=== PATIENT | female | born 1975 | race Caucasian/White ===

== ENCOUNTER 2018-04-29 01:20 | Emergency (ER) | payer OTHER ==
--- NOTE | 2018-04-29 01:50 | PDOC ---
Attending Attestation - Resident Resident Name: Ameya Oliveira - ED Attending Attestation I have performed the following: I have examined & evaluated the patient, The case was reviewed & discussed with the resident, I agree w/resident's findings & plan - HPI HPI: 04/29/18 04:07 Pt comes with a headache - Physicial Exam PE: 04/29/18 06:07 Agree with resident exam. - Medical Decision Making 04/29/18 04:07 Pt has headaches. 04/29/18 06:02 Pt states that her dad unexpectedly after a complication in the hospital after his hip surgery. 9 mos later her mom . Pt lives with her and 2 kids with her parents. Now the family is all screwed up ever since the grandparents . Pt's 18yo son has panic attacks since the deaths and 3yo daughter lost her babysitters. Pt states that she has been living in her parent 's home, and now she had to take over and deal with bills and repairs etc, and states that for the last 3 weeks she has been unable to sleep. Pt states that she is under a great deal of stress. 1 month ago her father in law also. Pt states that she never had a SCHMIDT last 3 weeks and she fears that she may be dying of cancer. 04/29/18 06:43 Patient Name: KEVYN KNIGHT THIS IS A PRELIMINARY REPORT FROM [facility] DATE OF SERVICE: 2018-04-29 06:26:48 IMAGES: 149 EXAM: CT HEAD CT WITHOUT CONTRAST HISTORY: Headache COMPARISON: None. FINDINGS: Brain parenchyma is normal in attenuation with no mass or hematoma. There is no midline shift. Garcia and white matter differentiation is normal. Ventricles are normal. Sulci and extra-axial CSF spaces are normal. Intracranial vascular structures are normal in attenuation. There is no calvarial fracture. Paranasal sinuses are normally aerated. IMPRESSION: Normal head
[2018-04-29] MEDS ORDERED: METOCLOPRAMIDE HCL INJECTION 10 MG/2 ML VIAL IVPUSH ONE (02:03)
[2018-04-29] MEDS ORDERED: ACETAMINOPHEN 1000 MG/100 ML VIAL (NON FORMULARY) IVPB ONE (02:03)
[2018-04-29 02:06] VITALS: BP 112/81; PULSE 86; TEMP 98.1; BMI 28.8
[2018-04-29] MEDS ORDERED: METOCLOPRAMIDE HCL INJECTION 10 MG/2 ML VIAL ONE (02:31)
[2018-04-29] MEDS ORDERED: ACETAMINOPHEN INJECTION 100 ML IVPB ONE (02:31)
--- NOTE | 2018-04-29 03:05 | PDOC ---
History of Present Illness - General Chief Complaint: Headache Stated Complaint: MIGRAINE HEADACHE Time Seen by Provider: 04/29/18 01:49 History Source: Patient Exam Limitations: No Limitations - History of Present Illness Initial Comments: 04/29/18 03:00 Patient is a 42F with history of migraines here today complaining of a headache. Patient describes a headache that started insidiously at 7pm today gradually worsening in intensity, worse on the left aspect of her head. Denies vision loss, jaw claudication. Patient states that she's coming in today because she has had a headache for the past 3 weeks, when she normally gets 1-3 per month. Denies fevers, chills, nausea, vomiting. Denies chest pain, shortness of breath. Endorses associated light and sound sensitivity. Past History - Past Medical History Allergies/Adverse Reactions: Allergies Allergy/AdvReac Type Severity Reaction Status Date / Time No Known Allergies Allergy Verified 04/29/18 02:03 COPD: No - Suicide/Smoking/Psychosocial Hx Smoking History: Never smoked Review of Systems - Review of Systems Comments:: 04/29/18 03:02 GENERAL/CONSTITUTIONAL: No fever or chills. No weakness. HEAD, EYES, EARS, NOSE AND THROAT: No change in vision. No sore throat. CARDIOVASCULAR: No chest pain or shortness of breath RESPIRATORY: No cough, wheezing, or hemoptysis. GASTROINTESTINAL: No nausea, vomiting, diarrhea or constipation. GENITOURINARY: No dysuria, frequency, or change in urination. MUSCULOSKELETAL: No joint or muscle swelling or pain. No neck or back pain. SKIN: No rash NEUROLOGIC: +headache, no vertigo, loss of consciousness, or change in strength/ sensation. ENDOCRINE: No increased thirst. No abnormal weight change HEMATOLOGIC/LYMPHATIC: No anemia, easy bleeding, or history of blood clots. ALLERGIC/IMMUNOLOGIC: No hives or skin allergy. *Physical Exam - Vital Signs Last Vital Signs Temp Pulse Resp BP Pulse Ox 98.1 F 86 18 112/81 98 04/29/18 02:00 04/29/18 02:00 04/29/18 02:00 04/29/18 02:00 04/29/18 02:00 - Physical Exam Comments: 04/29/18 03:03 GENERAL: Awake, alert, and fully oriented, shielding eyes from light HEAD: No signs of trauma, normocephalic, atraumatic EYES: PERRLA, EOMI, sclera anicteric, conjunctiva clear ENT: Auricles normal inspection, hearing grossly normal, nares patent, oropharynx clear without exudates. Moist mucosa NECK: Normal ROM, supple, no lymphadenopathy, JVD, or masses LUNGS: No distress, speaks full sentences, clear to auscultation bilaterally HEART: Regular rate and rhythm, normal S1 and S2, no murmurs, rubs or gallops, peripheral pulses normal and equal bilaterally. ABDOMEN: Soft, nontender, normoactive bowel sounds. No guarding, no rebound. No masses EXTREMITIES: Normal inspection, Normal range of motion, no edema. No clubbing or cyanosis. NEUROLOGICAL: Cranial nerves II through XII grossly intact. Normal speech, normal gait, no focal sensorimotor deficits SKIN: Warm, Dry, normal turgor, no rashes or lesions noted. Moderate Sedation - Procedure Monitoring Vital Signs: Procedure Monitoring Vital Signs Temperature 98.1 F 04/29/18 02:00 Pulse Rate 86 04/29/18 02:00 Respiratory Rate 18 04/29/18 02:00 Blood Pressure 112/81 04/29/18 02:00 O2 Sat by Pulse Oximetry (%) 98 04/29/18 02:00 ED Treatment Course - LABORATORY CBC & Chemistry Diagram: 04/29/18 03:17 04/29/18 03:17 Medical Decision Making - Medical Decision Making 04/29/18 03:03 Patient is 42F here today with headache consistent with headache. Considered head bleed, meningitis, sinus thrombosis, giant cell arteritis, mass, but history, risk factors and exam not consistent with those and other major etiologies of headache. Will treat with tylenol, reglan, benadryl. Will evaluate with basic labs. 04/29/18 04:50 CBC normal. CMP reassuring. ESR negative. Headache improved. Will discharge home with return precautions. *DC/Admit/Observation/Transfer Diagnosis at time of Disposition: Headache - Discharge Dispostion Disposition: HOME Condition at time of disposition: Good Decision to Admit order: No - Referrals Referrals: ON STAFF,NOT [Primary Care Provider] - - Patient Instructions Printed Discharge Instructions: DI for Migraine Additional Instructions: Please follow up with a neurologist. You can follow with the neurologist you were referred to by your PCP or the one below. Please return if you have any new, worsening or concerning symptoms, especially fever, increasing pain and vomiting. - Post Discharge Activity
[2018-04-29 04:03] LABS: BASO % 0.7 % (0-2.0); EOS % 4.8 % (0-4.5); HEMATOCRIT 38.9 % (32.4-45.2); HEMOGLOBIN 13.9 GM/dL (10.7-15.3); LYMPH % 33.6 % (8-40); MCH 33.5 pg (25.7-33.7); MCHC 35.6 g/dl (32.0-36.0); MEAN CELL VOLUME 94.1 fl (80-96); MEAN PLT VOLUME 7.6 fl (7.5-11.1); MONO % 7.8 % (3.8-10.2); NEUT % 53.1 % (42.8-82.8); PLATELET COUNT 185 K/MM3 (134-434); RBC 4.14 M/mm3 (3.60-5.2); RDW 13.2 % (11.6-15.6); WHITE BLOOD COUNT 5.3 K/mm3 (4.0-10.0)
[2018-04-29 04:39] LABS: ALK PHOS 90 U/L (45-117); ANION GAP 7 MMOL/L (8-16); BILIRUBIN,TOTAL 0.8 mg/dL (0.2-1); BLOOD UREA NITROGEN 17 mg/dL (7-18); CALCIUM 8.6 mg/dL (8.5-10.1); CHLORIDE 104 mmol/L (98-107); CO2 30 mmol/L (21-32); CREATININE 0.9 mg/dL (0.55-1.3); GLUCOSE,RANDOM 87 mg/dL (74-106); POTASSIUM 3.6 mmol/L (3.5-5.1); SGOT/AST 16 U/L (15-37); SGPT/ALT 23 U/L (13-61); SODIUM 140 mmol/L (136-145); TOT PROT 7.4 g/dl (6.4-8.2)
== END 2018-04-29 06:50 | disposition home or self-care (01) ==
LOC: JER 01:20
PROC: 3E033GC Introduction of Other Therapeutic Substance into Peripheral Vein, Percutaneous Approach (ICD-10-PCS; principal; 2018-04-29)
PROC: 3E033GC Introduction of Other Therapeutic Substance into Peripheral Vein, Percutaneous Approach (ICD-10-PCS; 2018-04-29)
PROC: 3E033NZ Introduction of Analgesics, Hypnotics, Sedatives into Peripheral Vein, Percutaneous Approach (ICD-10-PCS; 2018-04-29)
DX: R51 Headache (principal)
CPT/HCPCS: 36415; 70450-TC; 80053; 84703; 85025; 85651; 96374; 96375; 99282-25; J0131

== ENCOUNTER 2021-03-06 21:24 | Emergency (ER) | payer OTHER ==
[2021-03-06 21:43] VITALS: TEMP 98.5; BMI 29.5
[2021-03-06] MEDS ORDERED: ONDANSETRON *ODT* 4 MG TABLET SL ONE (23:13)
[2021-03-06] MEDS ORDERED: ACETAMINOPHEN 325 MG TABLET (FP) PO ONE (23:13)
[2021-03-06] MEDS ORDERED: ACETAMINOPHEN 325 MG TABLET (FP) ONE ×2 (23:26→23:30)
[2021-03-06] MEDS ORDERED: ONDANSETRON *ODT* 4 MG TABLET ONE ×2 (23:26→23:30)
[2021-03-07 00:45] VITALS: BP 115/71; PULSE 89
== END 2021-03-07 00:45 | disposition home or self-care (01) ==
LOC: JER 21:24
DX: J06.9 Acute upper respiratory infection, unspecified (principal)
CPT/HCPCS: 87804; 99283-25; C9803; Q0162; U0003; U0005